=== PATIENT | female | born 1980 | race Caucasian/White ===

== ENCOUNTER 2021-01-14 12:13 | Emergency (ER) | payer SELFPAY ==
--- NOTE | 2021-01-14 13:29 | EDM.PDOC ---
ED HPI GENERAL MEDICAL PROBLEM - General Chief Complaint: Bite:Animal, Insect Stated Complaint: POSSIBLE BIT BY BAT Time Seen by Provider: 01/14/21 13:00 Source of Information: Reports: Patient History Limitations: Reports: No Limitations - History of Present Illness INITIAL COMMENTS - FREE TEXT/NARRATIVE: 40-year-old female that was possibly exposed to a rabid bat while sleeping 11 days ago, she has no known wounds or symptoms but was told by the health department to come in and get immune and vaccine treatment for rabies. She is accompanied by her daughter who is getting the same thing. Onset: Other (Exposure was 11 days ago) Associated Symptoms: Reports: No Other Symptoms - Related Data Allergies Allergy/AdvReac Type Severity Reaction Status Date / Time amoxicillin Allergy Abdominal Verified 01/14/21 12:43 Pain levofloxacin [From Levaquin] Allergy Abdominal Verified 01/14/21 12:43 Pain Sulfa (Sulfonamide Allergy Rash Verified 01/14/21 12:43 Antibiotics) Home Meds: Home Meds Propranolol [Inderal] 1 tab PO DAILY 01/14/21 [History] buPROPion [buPROPion XL] 1 tab PO BID 01/14/21 [History] Past Medical History Musculoskeletal History: Reports: Back Pain, Chronic Social & Family History - Tobacco Use Tobacco Use Status *Q: Never Tobacco User ED ROS GENERAL - Review of Systems Review Of Systems: See Below Constitutional: Denies: Fever, Chills HEENT: Reports: No Symptoms Respiratory: Denies: Shortness of Breath Cardiovascular: Reports: Chest Pain, Other (Patient gets chronic recurring chest pressure with stress, it has been worked up thoroughly) GI/Abdominal: Reports: No Symptoms. Denies: Nausea, Vomiting : Reports: No Symptoms Musculoskeletal: Reports: No Symptoms Skin: Reports: No Symptoms, Other (No bite osman or bruising) Neurological: Denies: Headache Psychiatric: Reports: Anxiety ED EXAM, ANIMAL BITE - Physical Exam Exam: See Below Exam Limited By: No Limitations General Appearance: Alert, No Apparent Distress Eye Exam: Bilateral Eye: Normal Inspection Head: Atraumatic Respiratory/Chest: No Respiratory Distress Cardiovascular: Regular Rate, Rhythm. No: Tachycardia Extremities: Normal Inspection Neurological: Alert, Oriented Psychiatric: Normal Affect, Normal Mood Skin Exam: Normal Color, Warm/Dry Course - Vital Signs Last Recorded V/S: Last Vital Signs Temp 97.5 F 01/14/21 12:50 Pulse 61 07/11/21 12:50 Resp 14 01/14/21 12:50 BP 129/80 01/14/21 12:50 Pulse Ox 97 01/14/21 12:50 - Orders/Labs/Meds Meds: Medications Discontinued Medications Generic Name Dose Route Start Last Admin Trade Name Yanq PRN Reason Stop Dose Admin Rabies Immune Globulin 1,950 unit 01/14/21 13:30 01/14/21 13:42 Rabies Immune Globulin/Pf 300 Unit/Ml 5 Ml Sdv IM 01/14/21 13:31 1,950 unit .ONCE ONE Administration Rabies Vaccine 2.5 unit 01/14/21 13:30 01/14/21 13:43 Rabies Vaccine (Jamison) 2.5 Unit Inj Kit IM 01/14/21 13:31 2.5 unit .ONCE ONE Administration - Re-Assessments/Exams Free Text/Narrative Re-Assessment/Exam: 01/14/21 13:08 Per the [place] [facility] recommendation, immunoglobulin per weight and the day 0 rabies vaccine will be administered. An outpatient order for the day 3 vaccine was written and the rest of her series will be obtained in [place] when they get home. Departure - Departure Time of Disposition: 13:54 Disposition: Home, Self-Care 01 Clinical Impression: Exposure to rabies - Discharge Information Instructions: Rabies Referrals: PCP,None [Primary Care Provider] - Forms: ED Department Discharge Care Plan Goals: Return in 3 days for your second vaccine dose to keep on your vaccination schedule. Sepsis Event Note (ED) - Evaluation Sepsis Screening Result: No Definite Risk - Focused Exam Vital Signs: Vital Signs Temp Pulse Resp BP Pulse Ox 01/14/21 12:50 97.5 F 61 14 129/80 97
[2021-01-14] MEDS ORDERED: Rabies Vaccine (Avian) 2.5 Unit Inj Kit IM ONE (13:30)
[2021-01-14] MEDS ORDERED: Rabies Immune Globulin/PF 300 UNIT/ML 5 ML SDV IM ONE (13:30)
== END 2021-01-14 13:54 | disposition home or self-care (01) ==
LOC: JP.ED 12:13
DX: Z20.3 Contact with and (suspected) exposure to rabies (principal); Z23 Encounter for immunization; Z88.0 Allergy status to penicillin; Z88.2 Allergy status to sulfonamides; Z88.1 Allergy status to other antibiotic agents
CPT/HCPCS: 90375; 90471; 90675; 96372; 99283